=== PATIENT | female | born 1975 | race Caucasian/White ===

== ENCOUNTER → 2018-07-16 | Outpatient (CLI) | payer BC ==
--- NOTE | 2018-07-20 10:10 | MM ---
Reason for exam: screening (asymptomatic). History: Patient is nulliparous. Family history of breast cancer in mother at age 50 and breast cancer in daughter at age 29. Pre-pectoral saline implants in both breasts, 2003. Physical Findings: A clinical breast exam by your physician is recommended on an annual basis and results should be correlated with mammographic findings. MG Screening Mammo Implant/CAD Bilateral CC and MLO view(s) were taken. No prior studies available for comparison. There is a right upper inner quadrant mass at posterior depth measuring 4mm. No suspicious abnormality in the left breast. Bilateral prepectoral saline implants. ASSESSMENT: Incomplete: need additional imaging evaluation, BI-RAD 0 RECOMMENDATION: Ultrasound of the right breast. (upper inner quadrant) [facility] will attempt to contact patient to return for ultrasound.
== END | disposition home or self-care (01) ==
LOC: RADMAMWWP 10:54
PROVIDERS: ATTEND Family Medicine
DX: Z12.31 Encounter for screening mammogram for malignant neoplasm of breast (principal)
CPT/HCPCS: 77067

== ENCOUNTER → 2018-08-16 | Outpatient (CLI) | payer BC ==
--- NOTE | 2018-08-16 11:10 | USB ---
Reason for exam: additional evaluation requested from abnormal screening. History: Patient is nulliparous. Family history of breast cancer in mother at age 50 and breast cancer in daughter at age 29. Pre-pectoral saline implants in both breasts, 2003. Physical Findings: Nurse did not find any significant physical abnormalities on exam. US Breast Workup Limited RT Right limited breast ultrasound including focal area of concern, retroareolar and axilla demonstrates a 0.5 x 0.3 x 0.4cm benign cystic cluster at 12 o'clock, corresponds with mammographic finding. Dense tissue also noted. These results were verbally communicated with the patient and result sheet given to the patient on 08/16/18. ASSESSMENT: Benign, BI-RAD 2 RECOMMENDATION: Return to routine screening mammogram schedule for both breasts.
== END | disposition home or self-care (01) ==
LOC: RADUSWWP 10:18
PROVIDERS: ATTEND Family Medicine
DX: R92.8 Other abnormal and inconclusive findings on diagnostic imaging of breast (principal)

== ENCOUNTER → 2018-09-07 | Outpatient (CLI) | payer BC ==
--- NOTE | 2018-09-07 20:11 | NM ---
EXAMINATION TYPE: NM bone scan whole body DATE OF EXAM: 09/07/2018 COMPARISON: NONE HISTORY: Neck pain for 2 weeks per order. Cervicalgia and cervical region radiculopathy per order. Delayed whole-body scanning was performed following the injection of 20.7 mCi Tc 99m MDP. Images acq uired 3 hours post injection. Whole body images in the anterior and posterior projections along with multiple spot images of the head and neck and upper thorax are acquired. FINDINGS: No suspicious or abnormal radiotracer uptake is identified to suggest metastatic disease to the bone or other suspicious abnormality. No suspicious radiotracer uptake is seen at area of clinical concern in the cervical spine. IMPRESSION: As above.
== END | disposition home or self-care (01) ==
LOC: RADNMMAIN 09:54
PROVIDERS: ATTEND Physical Medicine & Rehabilitation
DX: M54.12 Radiculopathy, cervical region (principal)
CPT/HCPCS: 78306; A9503

== ENCOUNTER → 2019-07-04 | Outpatient (CLI) | payer BC | END | disposition home or self-care (01) | LOC: LABWHC1 10:23 | PROVIDERS: ATTEND Physical Medicine & Rehabilitation | DX: R53.83 Other fatigue (principal) | CPT/HCPCS: 36415; 82533; 84443 ==